=== PATIENT | male | born 1950 | race Caucasian/White ===

== ENCOUNTER → 2017-05-15 | Outpatient (CLI) | payer MEDICARE, BC ==
[~2017-05-15] MED LIST: DAILY VALUE1 EACH PO; FISH OIL 1,2001 EAC4 PO; LISINOPRIL5 MG PO; SAW PALMETTO160 MG PO; TRICOR145 MG PO
== END | disposition home or self-care (01) ==
LOC: CDC 11:09
DX: Z01.810 Encounter for preprocedural cardiovascular examination (principal); I45.4 Nonspecific intraventricular block
CPT/HCPCS: 93000

== ENCOUNTER → 2017-07-08 | Outpatient (CLI) | payer OTHER, BC | END | disposition home or self-care (01) | LOC: NUC 09:46 | DX: C61 Malignant neoplasm of prostate (principal); Z87.81 Personal history of (healed) traumatic fracture; Z96.9 Presence of functional implant, unspecified | CPT/HCPCS: 78306; 78999; A9503 ==